=== PATIENT | female | born 1960 ===

== ENCOUNTER 2019-10-25 16:05 | Emergency (ER) | payer SELFPAY ==
[~2019-10-25] VITALS: Ht 170.2 cm; Wt 105.0 kg
[2019-10-25 16:26] VITALS: BP 142/83
== END 2019-10-25 19:32 | disposition left against medical advice (07) ==
LOC: ER 19:32
DX: R07.89 Other chest pain (principal); Z53.21 Procedure and treatment not carried out due to patient leaving prior to being seen by health care provider
CPT/HCPCS: 93005